=== PATIENT | male | born 1955 ===

== ENCOUNTER 2023-12-28 08:00 | Outpatient (NON) | payer MEDICARE, SELFPAY | END 2023-12-28 08:01 | disposition home or self-care (01) | PROVIDERS: Visit Provider Internal Medicine Gastroenterology | DX: Z12.11 Encounter for screening for malignant neoplasm of colon (principal) | CPT/HCPCS: 88305 ==

== ENCOUNTER 2023-12-28 09:00 | Day surgery (SDC) | payer MEDICARE, SELFPAY ==
[2023-12-17 07:20] VITALS: BMI 25.4
[2023-12-17 12:46] VITALS: BMI 25.0
--- NOTE | 2023-12-21 13:28 | PM.HPGS ---
History of Present Illness History of Present Illness Consent: Risks, benefits, and alternatives have been discussed and questions answered. Patient agrees to proceed with procedure. Chief complaint: Personal history of colon polyps Narrative: Dl Fowler is a 68 year old male referred for colon cancer screening. He has a history of polyps. His last colonoscopy, 6 years ago was negative for polyps. Review of Systems Review of Systems: All systems reviewed & are unremarkable except as noted in HPI and below PMFSH Social History Social History Smoking status: Never smoker Substance use type: does not use Living arrangements: alone Spiritual care concerns: No Meds Home Medications and Allergies Home Medications Medication Instructions Recorded Confirmed Type No Home Medications 12/17/23 12/17/23 History Allergies Allergy/AdvReac Type Severity Reaction Status Date / Time No Known Allergies Allergy Verified 12/28/23 10:08 Exam Resp: Auscultation: clear to auscultation bilaterally Cardio: Rate: regular rate Rhythm: regular rhythm GI: GI Palp: Yes Soft to palpation and No Tenderness to palpation present (GI) Assessment and Plan Assessment and plan (1) Colon cancer screening: Code(s): Z12.11 - Encounter for screening for malignant neoplasm of colon Status: Acute Assessment and Plan: Colonoscopy with possible biopsy or polypectomy or cautery or injection of substances.
[2023-12-28 10:15] VITALS: BP 138/86; PULSE 59; RESP 18; TEMP 36.6; O2SAT 99
[2023-12-28] MEDS: LACTATED RINGERS 1,000 ML 150 ML IV CONT (10:17)
--- NOTE | 2023-12-28 10:23 | P.PNAN_ITS ---
Anes - Initial Pre Proc Eval Procedure: Operation Date: 12/28/23 11:30 Proposed Procedures p Diagnostic Colonoscopy - Alin Rey MD Date/Time: 12/28/23 10:23 Surgeon: Alin Rey MD Pre Op Diagnosis: Personal history of colon polyps Patient Data Age: 68 Gender: M Height: 1.91 m Weight: 90.85 kg Last Vital Signs Temp 36.6 C 12/28/23 10:15 Pulse 59 L 12/28/23 10:15 Resp 18 12/28/23 10:15 BP 138/86 12/28/23 10:15 Pulse Ox 99 12/28/23 10:15 O2 Del Method Room Air 12/28/23 10:15 Allergies Allergy/AdvReac Type Severity Reaction Status Date / Time No Known Allergies Allergy Verified 12/28/23 10:08 Home Medications Medication Instructions Recorded Confirmed Type No Home Medications 12/17/23 12/17/23 History Patient hx anesthesia problems: none Family hx anesthesia problems: none Results Review: All pre-operative results and documents have been reviewed as part of the pre- operative evaluation. [facility] Social History Social History Smoking status: Never smoker Substance use type: does not use Living arrangements: alone Spiritual care concerns: No Anes - Eval Final PreProcedure Day of Procedure 12/28/23 10:23 Patient weight: normal Heart: regular rate and rhythm Lungs: clear to auscultation Airway: Mallampati scale class II Neurological: alert and oriented Last oral intake: >/= 8 hours ASA classification: II Emergent: no Anesthetic plan: proceed Anesthesia type and monitoring: general GIVS and standard monitoring Results Review: All pre-operative results and documents have been reviewed as part of the pre- operative evaluation. Informed Consent: The patient's anesthetic plan and its attendant risks and benefits were discussed with the patient/family/POA. Questions were solicited and answers provided to the satisfaction of the patient/family/POA.
[2023-12-28 11:04] VITALS: BP 126/77; PULSE 60; RESP 14; O2SAT 98
[2023-12-28 11:14] VITALS: BP 123/63; PULSE 61; RESP 20; O2SAT 99
--- NOTE | 2023-12-28 11:15 | WPDANESPN ---
Anes - Prog Note Post-Op Date/Time: 12/28/23 11:15 Cardiovascular status: normal Respiratory status: normal Airway patency: baseline Mental status: baseline Post-Op hydration status: normal Vital Signs: Last Vital Signs Temp 36.6 C 12/28/23 10:15 Pulse 60 12/28/23 11:04 Resp 14 12/28/23 11:04 BP 126/77 12/28/23 11:04 Pulse Ox 98 12/28/23 11:04 O2 Del Method Room Air 12/28/23 11:04 Pain Score (VAS): 0 I/O: Intake & Output 12/27/23 12/28/23 12/28/23 23:59 07:59 15:59 Intake Total 400 Balance 400 Patient Feedback: Patient satisfied with anesthetic care.
[2023-12-28 11:24] VITALS: BP 132/85; PULSE 60; RESP 20; O2SAT 100
== END 2023-12-28 11:37 | disposition home or self-care (01) ==
PROVIDERS: Visit Provider Internal Medicine Gastroenterology
PROC: 0DJD8ZZ Inspection of Lower Intestinal Tract, Via Natural or Artificial Opening Endoscopic (ICD-10-PCS; CPT 45378; principal; 2023-12-28 11:30)
DX: Z12.11 Encounter for screening for malignant neoplasm of colon (principal); D12.2 Benign neoplasm of ascending colon; K64.8 Other hemorrhoids
CPT/HCPCS: 45385